=== PATIENT | male | born 1945 | race Caucasian/White ===

== ENCOUNTER 2018-11-21 12:51 | Day surgery (SDC) | payer MEDICARE, BC ==
[2018-11-21] MEDS ORDERED: Erythromycin Base 0.5% Ophth Oint 1 GM Tube EYEBOTH SCH (13:15)
[2018-11-21] MEDS ORDERED: Tetracaine HCl/PF 0.5% 4 ML Bottle EYEBOTH SCH (13:15)
[2018-11-21] MEDS ORDERED: Lidocaine 1%/Sod Bicarbonate in NS 8.4% 1 ML Syringe IDERM PRN (13:39)
[2018-11-21] MEDS ORDERED: Sodium Chloride 0.9% 10 ML Syringe FLUSH PRN (13:39)
[2018-11-21] MEDS ORDERED: Lactated Ringers 1,000 ML IV SCH (13:45)
--- NOTE | 2018-11-21 14:12 | PCM.PREANE ---
Preanesthetic Assessment - Anesthesia/Transfusion/Family Hx Anesthesia History: Prior Anesthesia Without Reaction Family History of Anesthesia Reaction: No Transfusion History: No Prior Transfusion(s) Intubation History: Unknown - Review of Systems General: No Symptoms Pulmonary: Other (Chronic Sinus Drainage, makes him clear is throat from time to time. SEVERINO wears CPAP. ) Cardiovascular: No Symptoms Gastrointestinal: Other (GERD/Hiatal hernia. No symptoms when he takes his prilosec, took in this morning. ) Neurological: No Symptoms Other: Reports: None - Physical Assessment NPO Status Date: 11/20/18 NPO Status Time: 18:00 O2 Sat by Pulse Oximetry: 96 Respiratory Rate: 18 Vital Signs: Last Vital Signs Temp 36.8 C 11/21/18 13:20 Pulse 65 11/21/18 13:20 Resp 18 11/21/18 13:20 BP 150/91 H 11/21/18 13:20 Pulse Ox 96 11/21/18 13:20 Height: 1.8 m Weight: 99.79 kg ASA Class: 2 Mental Status: Alert & Oriented x3 Airway Class: Mallampati = 2 Dentition: Reports: Normal Dentition Thyro-Mental Finger Breadths: 3 Mouth Opening Finger Breadths: 3 ROM/Head Extension: Full Lungs: Clear to Auscultation, Normal Respiratory Effort Cardiovascular: Regular Rate, Regular Rhythm - Allergies Allergies/Adverse Reactions: Allergies Allergy/AdvReac Type Severity Reaction Status Date / Time No Known Allergies Allergy Verified 11/21/18 13:49 - Acknowledgements Anesthesia Type Planned: MAC Pt an Appropriate Candidate for the Planned Anesthesia: Yes Alternatives and Risks of Anesthesia Discussed w Pt/Guardian: Yes Pt/Guardian Understands and Agrees with Anesthesia Plan: Yes Additional Comments: Shoulder Reduction in ER in July, aspiration noted, patient states he did not develop pneumonia. He was not NPO for this procedure. He understands that aspiration in a risk associated with anesthesia. Education provided regarding NPO status. He is NPO today. He verbalized his understanding and wishes to proceed. PreAnesthesia Questionnaire HEENT History: Reports: Cataract, Hard of Hearing, Impaired Vision Other HEENT History: Wears glasses, bilateral hearing aids Respiratory History: Reports: Sleep Apnea, Other (See Below) Other Respiratory History: coughs up mucuous frequently Gastrointestinal History: Reports: GERD, Hiatal Hernia Genitourinary History: Reports: None Musculoskeletal History: Reports: Arthritis Neurological History: Reports: Vertigo Psychiatric History: Reports: Depression - Infectious Disease History Infectious Disease History: Reports: Chicken Pox, Measles, Mumps - Past Surgical History HEENT Surgical History: Reports: Oral Surgery Respiratory Surgical History: Reports: None GI Surgical History: Reports: Colonoscopy Male Surgical History: Reports: None Neurological Surgical History: Reports: None Musculoskeletal Surgical History: Reports: None Dermatological Surgical History: Reports: Other (See Below) - HOME MEDS Home Medications: Home Meds Omeprazole Magnesium [Prilosec Otc] 40 mg PO DAILY 06/01/16 [History] Donepezil [Aricept] 5 mg PO BEDTIME 06/02/16 [History] Aspirin [Adult Aspirin] 81 mg PO DAILY 07/16/18 [History] Fish Oil/[place]-3 Fatty Acids [Fish Oil 1,000 MG] 1,000 mg PO DAILY 07/16/18 [ History] Fluticasone Furoate [Arnuity Ellipta] 50 mcg INH DAILY PRN 07/16/18 [History] Hydrocodone/Acetaminophen [[place] 5-325 Tablet] 1 - 2 tab PO Q6H PRN #20 tablet 07/16/18 [Rx] Methylcellulose [Fiber Therapy] 2 tab PO DAILY 07/16/18 [History] Naproxen 250 mg PO DAILY 07/16/18 [History] Ondansetron [Zofran ODT] 1 tab PO Q8H PRN #10 tab.dis 07/16/18 [Rx] - CURRENT (IN HOUSE) MEDS Current Meds: Current Medications Erythromycin (Erythromycin 0.5% Ophth Oint) 1 gm EYEBOTH ASDIRECTED VINICIUS Stop: 11/21/18 18:00 Lactated Ringer's (Ringers, Lactated) 1,000 mls @ 125 mls/hr IV ASDIRECTED VINICIUS Stop: 11/21/18 23:00 Last Admin: 11/21/18 13:35 Dose: 125 mls/hr Lidocaine/Sodium Bicarbonate (Buffered Lidocaine 1% In Ns 8.4%) 0.25 ml IDERM ONETIME PRN PRN Reason: Prior to IV Start Stop: 11/21/18 18:00 Last Admin: 11/21/18 13:35 Dose: 0.25 ml Sodium Chloride (Saline Flush) 10 ml FLUSH ASDIRECTED PRN PRN Reason: Keep Vein Open Stop: 11/21/18 18:00 Tetracaine HCl (Tetracaine 0.5% Steri-Unit Myah) 0 ml EYEBOTH ASDIRECTED VINICIUS Stop: 11/21/18 18:00
[2018-11-21] MEDS ORDERED: Propofol 200 MG/20 ML SDV ONE ×2 (14:35→15:34)
[2018-11-21] MEDS ORDERED: Lidocaine 1% 4 ML ONE (14:36)
[2018-11-21] MEDS ORDERED: Lidocaine 1% with EPINEPHrine 1:100,000 20 ML MDV ONE ×2 (14:49→15:35)
--- NOTE | 2018-11-21 16:26 | PCM48HPAN ---
Post Anesthesia Note - EVALUATION WITHIN 48HRS OF ANESTHETIC Vital Signs in Normal Range: Yes Patient Participated in Evaluation: Yes Respiratory Function Stable: Yes Airway Patent: Yes Cardiovascular Function Stable: Yes Hydration Status Stable: Yes Pain Control Satisfactory: Yes Nausea and Vomiting Control Satisfactory: Yes Mental Status Recovered: Yes
[2018-11-21 17:13] VITALS: BP 123/77
== END 2018-11-21 17:02 | disposition home or self-care (01) ==
LOC: JD.SDS 12:51
PROVIDERS: ATTEND Ophthalmology
DX: H02.834 Dermatochalasis of left upper eyelid (principal); H02.831 Dermatochalasis of right upper eyelid; H02.403 Unspecified ptosis of bilateral eyelids; G47.33 Obstructive sleep apnea (adult) (pediatric); Z99.89 Dependence on other enabling machines and devices; K21.9 Gastro-esophageal reflux disease without esophagitis; M19.90 Unspecified osteoarthritis, unspecified site; Z79.82 Long term (current) use of aspirin; Z79.899 Other long term (current) drug therapy
CPT/HCPCS: 15823; A9270; J2001; J2704; J7120

== ENCOUNTER 2020-05-27 07:54 | Emergency (ER) | payer MEDICARE, BC ==
--- NOTE | 2020-05-27 08:10 | EDM.PDOC ---
ED HPI GENERAL MEDICAL PROBLEM - General Chief Complaint: Respiratory Problem Stated Complaint: SOB,BODY ACHES, VOMITING,NAUSEA X 6 DAYS Time Seen by Provider: 05/27/20 08:10 - History of Present Illness INITIAL COMMENTS - FREE TEXT/NARRATIVE: 74-year-old male presents the emergency room with nausea vomiting and a cough. He also thinks he has had a fever. Patient has had a cough for 2 to 3 weeks he believes. He has had nausea and vomiting for 4 or 5 days. He is able to keep soups and liquids down but if he tries to eat something heavier he has problems with this. He has been voiding on a regular basis. The patient has a productive cough he thinks this is been going on for several weeks. He brings up a small amount of phlegm on occasion. He believes he has had fevers but is not sure how high. - Related Data Allergies Allergy/AdvReac Type Severity Reaction Status Date / Time No Known Allergies Allergy Verified 05/27/20 08:11 Home Meds: Home Meds Omeprazole Magnesium [Prilosec Otc] 40 mg PO DAILY 06/01/16 [History] Donepezil HCl 10 mg PO DAILY 05/27/20 [History] Prazosin [Minpress] 1 mg PO BEDTIME 05/27/20 [History] Tamsulosin HCl 0.4 mg PO DAILY 05/27/20 [History] ondansetron HCL [Ondansetron HCl] 4 mg PO Q6H PRN #12 tablet 05/27/20 [Rx] Past Medical History HEENT History: Reports: Cataract, Hard of Hearing, Impaired Vision Other HEENT History: Wears glasses, bilateral hearing aids Respiratory History: Reports: Sleep Apnea, Other (See Below) Other Respiratory History: coughs up mucuous frequently Gastrointestinal History: Reports: GERD, Hiatal Hernia Genitourinary History: Reports: None Musculoskeletal History: Reports: Arthritis Neurological History: Reports: Vertigo Psychiatric History: Reports: Depression - Infectious Disease History Infectious Disease History: Reports: Chicken Pox, Measles, Mumps - Past Surgical History HEENT Surgical History: Reports: Oral Surgery Respiratory Surgical History: Reports: None GI Surgical History: Reports: Colonoscopy Male Surgical History: Reports: None Neurological Surgical History: Reports: None Musculoskeletal Surgical History: Reports: None Dermatological Surgical History: Reports: Other (See Below) Social & Family History - Family History Family Medical History: Noncontributory Neurological: Reports: CVA - Caffeine Use Caffeine Use: Reports: Coffee - Living Situation & Occupation Living situation: Reports: , Alone Occupation: Employed (Part-time, [employer]) ED ROS GENERAL - Review of Systems Review Of Systems: See Below Constitutional: Reports: Fever. Denies: Chills HEENT: Reports: No Symptoms Respiratory: Reports: Cough, Sputum. Denies: Shortness of Breath, Wheezing, Hemoptysis Cardiovascular: Reports: No Symptoms Endocrine: Reports: No Symptoms GI/Abdominal: Reports: No Symptoms : Reports: No Symptoms Musculoskeletal: Reports: Other (Generalized achiness) Skin: Reports: No Symptoms Neurological: Reports: No Symptoms Psychiatric: Reports: No Symptoms Immunologic: Reports: No Symptoms ED EXAM, GENERAL - Physical Exam Exam: See Below Exam Limited By: Intoxication General Appearance: Alert, No Apparent Distress Eye Exam: Bilateral Eye: Normal Inspection Ears: Normal External Exam, Normal Canal, Hearing Grossly Normal, Normal TMs, Other (Hearing aids had to be removed for exam) Nose: Normal Inspection, Normal Mucosa, No Blood Throat/Mouth: Normal Inspection, Normal Lips, Normal Teeth, Normal Gums, Normal Oropharynx, Normal Voice, No Airway Compromise Head: Atraumatic, Normocephalic Neck: Normal Inspection, Supple, Non-Tender, Full Range of Motion Respiratory/Chest: No Respiratory Distress, Lungs Clear, Normal Breath Sounds Cardiovascular: Regular Rate, Rhythm, No Edema, No Murmur GI/Abdominal: Normal Bowel Sounds, Soft, Non-Tender, No Distention, Other (Obese) Back Exam: Normal Inspection. No: CVA Tenderness (L), CVA Tenderness (R) Extremities: Normal Inspection, No Pedal Edema Neurological: Alert, Oriented, Normal Cognition, Other (Apparently has some baseline dementia) Skin Exam: Warm, Dry, Intact Course - Vital Signs Last Recorded V/S: Last Vital Signs Temp 36.5 C 05/27/20 08:06 Pulse 66 05/27/20 08:06 Resp 23 H 05/27/20 08:06 BP 146/82 H 05/27/20 08:06 Pulse Ox 94 L 05/27/20 08:06 - Orders/Labs/Meds Orders: Active Orders 24 hr Category Date Time Status Sodium Chloride 0.9% [Normal Saline] 100 ml Med 05/27/20 10:45 Active IV ASDIRECTED Sodium Chloride 0.9% [Saline Flush] Med 05/27/20 10:41 Active 10 ml FLUSH ONETIME PRN Medication Orders Sodium Chloride (Normal Saline) 100 mls @ 75 mls/hr IV ASDIRECTED VINICIUS Last Admin: 05/27/20 11:16 Dose: 75 mls/hr Documented by: LAVINIA Sodium Chloride (Saline Flush) 10 ml FLUSH ONETIME PRN PRN Reason: IV FLUSH Last Admin: 05/27/20 11:16 Dose: 10 ml Documented by: Admin: 05/27/20 10:55 Dose: 10 ml Documented by: BISHOP Labs: Laboratory Tests 05/27/20 05/27/20 05/27/20 Range/Units 08:56 09:12 09:12 WBC 6.29 (4.23-9.07) K/mm3 RBC 4.67 (4.63-6.08) M/mm3 Hgb 13.9 (13.7-17.5) gm/dl Hct 43.0 (40.1-51.0) % MCV 92.1 (79.0-92.2) fl MCH 29.8 (25.7-32.2) pg MCHC 32.3 (32.2-35.5) g/dl RDW Std Deviation 45.7 H (35.1-43.9) fL Plt Count 149 L (163-337) K/mm3 MPV 10.2 (9.4-12.3) fl Neutrophils % (Manual) 80 H (40-60) % Band Neutrophils % 0 (0-10) % Lymphocytes % (Manual) 14 L (20-40) % Atypical Lymphs % 0 % Monocytes % (Manual) 6 (2-10) % Eosinophils % (Manual) 0 L (0.8-7.0) % Basophils % (Manual) 0 L (0.2-1.2) Platelet Estimate Adequate Plt Morphology Comment Normal RBC Morph Comment Normal D-Dimer, Quantitative (0.19-0.50) mg/L Sodium 141 (136-145) mEq/L Potassium 3.7 (3.5-5.1) mEq/L Chloride 106 (98-107) mEq/L Carbon Dioxide 27 (21-32) mEq/L Anion Gap 11.7 (5-15) BUN 27 H (7-18) mg/dL Creatinine 1.2 (0.7-1.3) mg/dL Est Cr Clr Drug Dosing 57.48 mL/min Estimated GFR (MDRD) 59 (>60) mL/min BUN/Creatinine Ratio 22.5 H (14-18) Glucose 103 (83-115) mg/dL Calcium 8.2 L (8.5-10.1) mg/dL Ferritin (26-388) ng/ml Total Bilirubin 0.9 (0.2-1.0) mg/dL AST 26 (15-37) U/L ALT 29 (16-63) U/L Alkaline Phosphatase 30 L (46-116) U/L Lactate Dehydrogenase 241 H (85-227) U/L Creatine Kinase 92 (39-308) U/L C-Reactive Protein 8.0 H* (<1.0) mg/dL Total Protein 6.7 (6.4-8.2) g/dl Albumin 3.2 L (3.4-5.0) g/dl Globulin 3.5 gm/dL Albumin/Globulin Ratio 0.9 L (1-2) SARS-CoV-2 RNA (BR[place]NEY) Positive H (NEGATIVE) 05/27/20 05/27/20 Range/Units 09:12 09:12 WBC (4.23-9.07) K/mm3 RBC (4.63-6.08) M/mm3 Hgb (13.7-17.5) gm/dl Hct (40.1-51.0) % MCV (79.0-92.2) fl MCH (25.7-32.2) pg MCHC (32.2-35.5) g/dl RDW Std Deviation (35.1-43.9) fL Plt Count (163-337) K/mm3 MPV (9.4-12.3) fl Neutrophils % (Manual) (40-60) % Band Neutrophils % (0-10) % Lymphocytes % (Manual) (20-40) % Atypical Lymphs % % Monocytes % (Manual) (2-10) % Eosinophils % (Manual) (0.8-7.0) % Basophils % (Manual) (0.2-1.2) Platelet Estimate Plt Morphology Comment RBC Morph Comment D-Dimer, Quantitative 1.12 H (0.19-0.50) mg/L Sodium (136-145) mEq/L Potassium (3.5-5.1) mEq/L Chloride (98-107) mEq/L Carbon Dioxide (21-32) mEq/L Anion Gap (5-15) BUN (7-18) mg/dL Creatinine (0.7-1.3) mg/dL Est Cr Clr Drug Dosing mL/min Estimated GFR (MDRD) (>60) mL/min BUN/Creatinine Ratio (14-18) Glucose (83-115) mg/dL Calcium (8.5-10.1) mg/dL Ferritin 811 H (26-388) ng/ml Total Bilirubin (0.2-1.0) mg/dL AST (15-37) U/L ALT (16-63) U/L Alkaline Phosphatase (46-116) U/L Lactate Dehydrogenase (85-227) U/L Creatine Kinase (39-308) U/L C-Reactive Protein (<1.0) mg/dL Total Protein (6.4-8.2) g/dl Albumin (3.4-5.0) g/dl Globulin gm/dL Albumin/Globulin Ratio (1-2) SARS-CoV-2 RNA (BR[place]NEY) (NEGATIVE) Meds: Medications Generic Name Dose Route Start Last Admin Trade Name Heather PRN Reason Stop Dose Admin Sodium Chloride 100 mls @ 75 mls/hr 05/27/20 10:45 05/27/20 11:16 Normal Saline IV 75 mls/hr ASDIRECTED VINICIUS Administration Sodium Chloride 10 ml 05/27/20 10:41 05/27/20 11:16 Saline Flush FLUSH 10 ml ONETIME PRN Administration IV FLUSH Discontinued Medications Generic Name Dose Route Start Last Admin Trade Name Freq PRN Reason Stop Dose Admin Iopamidol 100 ml 05/27/20 10:41 05/27/20 11:16 Isovue-370 (76%) IVPUSH 05/27/20 10:42 100 ml ONETIME ONE Administration Ondansetron HCl 4 mg 05/27/20 08:48 05/27/20 09:31 Zofran Odt PO 05/27/20 08:49 4 mg ONETIME ONE Administration - Re-Assessments/Exams Free Text/Narrative Re-Assessment/Exam: 05/27/20 10:38 Chest x-ray shows a developing density in the right upper lobe suspicious for pneumonia his d-dimer is elevated his d-dimer is elevated we will check a CTA. 05/27/20 14:24 We thought initially this patient might do well as an outpatient as he was having mostly GI symptoms however his O2 saturation dropped some while here in the emergency department. Discussed the situation with the daughter and they would still like for him to be treated as an outpatient we have arranged home O2 therapy and will start him on some Zofran he will not use that in the donepezil while taking the Zofran. Departure - Departure Time of Disposition: 14:17 Disposition: Home, Self-Care 01 Clinical Impression: COVID-19 determined by clinical diagnostic criteria, Nausea and vomiting - Discharge Information Referrals: Matthew Peters MD [Primary Care Provider] - Forms: ED Department Discharge Additional Instructions: Return to the emergency room with any questions problems or worsening symptoms. Have a high index of suspicion for any worsening symptoms as this is good justification to be rechecked. Stop the donepezil while using the Zofran restart after a couple days have elapsed while not needing the Zofran. Use the oxygen to keep the O2 saturation between 90 and 94%. Sepsis Event Note (ED) - Focused Exam Vital Signs: Vital Signs Temp Pulse Resp BP Pulse Ox 05/27/20 08:06 36.5 C 66 23 H 146/82 H 94 L - My Orders Last 24 Hours: My Active Orders 05/27/20 10:41 Sodium Chloride 0.9% [Saline Flush] 10 ml FLUSH ONETIME PRN 05/27/20 10:45 Sodium Chloride 0.9% [Normal Saline] 100 ml IV ASDIRECTED - Assessment/Plan Last 24 Hours: My Active Orders 05/27/20 10:41 Sodium Chloride 0.9% [Saline Flush] 10 ml FLUSH ONETIME PRN 05/27/20 10:45 Sodium Chloride 0.9% [Normal Saline] 100 ml IV ASDIRECTED
[2020-05-27] MEDS ORDERED: Ondansetron 4 MG Tab.DIS PO ONE (08:48)
--- NOTE | 2020-05-27 10:19 | CR ---
Chest: Portable view of the chest was obtained. Comparison: Prior chest x-ray of 07/17/18. Heart size is slightly enlarged. Tortuous thoracic aorta is seen. Minimal discoid atelectasis within left midlung. Slight focal parenchymal density within the right upper lung is seen adjacent to the minor fissure. Lungs otherwise are clear. Bony structures are grossly intact. Impression: 1. Focal density within the upper right lung presumably due to small area of pneumonia. 2. Slight discoid atelectasis within the left midlung. 3. Other findings which are felt to be stable. Diagnostic code #3 This report was dictated in MDT
[2020-05-27] MEDS ORDERED: Iopamidol 755 Mg/ML 100 ML Bottle IVPUSH ONE (10:41)
[2020-05-27] MEDS ORDERED: Sodium Chloride 0.9% 100 ML IV SCH (10:45)
[2020-05-27] MEDS: Sodium Chloride 0.9% 10 ML Syringe FLUSH PRN ×2 (10:55→11:16)
--- NOTE | 2020-05-27 11:34 | CT ---
CT chest Technique: Multiple axial sections were obtained from above the lung apices inferiorly through the lung bases. Intravenous contrast was utilized. Study performed as a pulmonary angiogram protocol. Findings: Pulmonary arteries are fairly well-opacified. No filling defects are seen to indicate pulmonary embolism. Aorta shows no aneurysm. Mediastinal lymph nodes are noted believed to be within normal limits. Patchy areas of increased density are seen within both sides of the chest. Finding compatible with mild Covid pneumonia. No pleural effusions are seen. Visualized upper abdominal structures show nothing acute. Cyst noted within the left kidney. Small hiatal hernia is present. Heart is slightly enlarged. Bone window settings were reviewed. Scattered degenerative change within the spine. Numerous compression deformities within the midthoracic spine are seen which are most likely old. No acute osseous finding is definitely appreciated. Impression: 1. No findings of pulmonary embolism. 2. Patchy increased density within the chest felt compatible with mild Covid pneumonia. 2. Other findings which are felt to be nonacute as described above. Diagnostic code #5 This report was dictated in MDT
[2020-05-27 14:44] VITALS: BP 136/82; PULSE 76
== END 2020-05-27 15:20 | disposition home or self-care (01) ==
LOC: JD.ED 07:54
DX: U07.1 COVID-19 (principal); R11.2 Nausea with vomiting, unspecified; K21.9 Gastro-esophageal reflux disease without esophagitis; Z79.899 Other long term (current) drug therapy
CPT/HCPCS: 36415; 71045; 71275; 80053; 82550; 82728; 83615; 85007; 85027; 85379; 86140; 96360; 99284; A9270; J7050; Q9967; U0002

== ENCOUNTER 2021-01-29 06:49 | Emergency (ER) | payer MEDICARE, BC ==
[2021-01-29 07:14] VITALS: BP 149/91; PULSE 61
--- NOTE | 2021-01-29 07:31 | EDM.PDOC ---
ED HPI GENERAL MEDICAL PROBLEM - General Chief Complaint: Genitourinary Problem Stated Complaint: UNABLE TO URINATE Time Seen by Provider: 01/29/21 07:09 Source of Information: Reports: Patient, Family History Limitations: Reports: No Limitations - History of Present Illness INITIAL COMMENTS - FREE TEXT/NARRATIVE: The patient presents with his daughter for the inability to urinate. He says for a few days he can only go a small amount. He is on flomax but it has never been this bad. It hurts when he drinks lots of water. He has no fever or chills. He has no pain with urination when he does go. He has no other concerns. Onset: Gradual Duration: Day(s): Location: Reports: Abdomen Quality: Reports: Ache Severity: Mild Improves with: Reports: None Worsens with: Reports: None Associated Symptoms: Reports: No Other Symptoms Lower Abdomen Pain Score (Numeric/FACES): 4 - Related Data Allergies Allergy/AdvReac Type Severity Reaction Status Date / Time No Known Allergies Allergy Verified 01/29/21 07:10 Home Meds: Home Meds Donepezil HCl 10 mg PO DAILY 01/29/21 [History] Fish Oil/[place]-3 Fatty Acids [Fish Oil 1,000 MG] 1 each PO QAM 01/29/21 [History] Methylcellulose [Fiber] 500 mg PO QAM 01/29/21 [History] Omeprazole Magnesium [Prilosec Otc] 20 mg PO DAILY 01/29/21 [History] Tamsulosin HCl [Flomax] 0.4 mg PO QAM 01/29/21 [History] traZODone HCl [Trazodone HCl] 50 mg PO DAILY 01/29/21 [History] Past Medical History HEENT History: Reports: Cataract, Hard of Hearing, Impaired Vision Other HEENT History: Wears glasses, bilateral hearing aids Respiratory History: Reports: Sleep Apnea, Other (See Below) Other Respiratory History: coughs up mucuous frequently Gastrointestinal History: Reports: GERD, Hiatal Hernia Genitourinary History: Reports: None Musculoskeletal History: Reports: Arthritis Neurological History: Reports: Vertigo Psychiatric History: Reports: Depression - Infectious Disease History Infectious Disease History: Reports: Chicken Pox, Measles, Mumps - Past Surgical History HEENT Surgical History: Reports: Oral Surgery Respiratory Surgical History: Reports: None GI Surgical History: Reports: Colonoscopy Male Surgical History: Reports: None Neurological Surgical History: Reports: None Musculoskeletal Surgical History: Reports: None Dermatological Surgical History: Reports: Other (See Below) Social & Family History - Family History Family Medical History: No Pertinent Family History Neurological: Reports: CVA - Caffeine Use Caffeine Use: Reports: Coffee - Living Situation & Occupation Living situation: Reports: , Alone Occupation: Employed (Part-time, [employer]) ED ROS GENERAL - Review of Systems Review Of Systems: See Below Constitutional: Reports: No Symptoms HEENT: Reports: No Symptoms Respiratory: Reports: No Symptoms Cardiovascular: Reports: No Symptoms Endocrine: Reports: No Symptoms GI/Abdominal: Reports: Abdominal Pain (at times) : Reports: Urinary Retention ED EXAM, GI/ABD - Physical Exam Exam: See Below Exam Limited By: No Limitations General Appearance: Alert, No Apparent Distress Ears: Normal External Exam Nose: Normal Inspection Head: Atraumatic, Normocephalic Neck: Normal Inspection Respiratory/Chest: No Respiratory Distress, Lungs Clear, Normal Breath Sounds Cardiovascular: Regular Rate, Rhythm, No Edema, No Murmur GI/Abdominal Exam: Soft, Non-Tender, No Organomegaly, No Mass Extremities: Normal Inspection Neurological: Alert, Oriented Course - Vital Signs Last Recorded V/S: Last Vital Signs Temp 96.9 F 01/29/21 07:10 Pulse 61 01/29/21 07:10 Resp 16 01/29/21 07:10 BP 149/91 H 01/29/21 07:10 Pulse Ox 94 L 01/29/21 07:10 - Orders/Labs/Meds Orders: Active Orders 24 hr Category Date Time Status Bladder Scan [RC] ASDIRECTED Care 01/29/21 07:33 Active Insert Huynh Catheter [Insert Urinary Catheter] [OM.PC] Care 01/29/21 07:30 Ordered Q24H Urinary Catheter Assessment [RC] ASDIRECTED Care 01/29/21 07:26 Active Labs: Laboratory Tests 01/29/21 01/29/21 01/29/21 Range/Units 07:30 07:55 07:55 WBC 6.49 (4.23-9.07) K/mm3 RBC 4.79 (4.63-6.08) M/mm3 Hgb 14.4 (13.7-17.5) gm/dl Hct 44.1 (40.1-51.0) % MCV 92.1 (79.0-92.2) fl MCH 30.1 (25.7-32.2) pg MCHC 32.7 (32.2-35.5) g/dl RDW Std Deviation 45.9 H (35.1-43.9) fL Plt Count 214 (163-337) K/mm3 MPV 9.5 (9.4-12.3) fl Neut % (Auto) 59.7 (34.0-67.9) % Lymph % (Auto) 27.9 (21.8-53.1) % [place] % (Auto) 8.5 (5.3-12.2) % Eos % (Auto) 3.5 (0.8-7.0) Baso % (Auto) 0.2 (0.1-1.2) % Neut # (Auto) 3.88 (1.78-5.38) K/mm3 Lymph # (Auto) 1.81 (1.32-3.57) K/mm3 [place] # (Auto) 0.55 (0.30-0.82) K/mm3 Eos # (Auto) 0.23 (0.04-0.54) K/mm3 Baso # (Auto) 0.01 (0.01-0.08) K/mm3 Sodium 141 (136-145) mEq/L Potassium 4.0 (3.5-5.1) mEq/L Chloride 105 (98-107) mEq/L Carbon Dioxide 25 (21-32) mEq/L Anion Gap 15.0 (5-15) BUN 20 H (7-18) mg/dL Creatinine 1.2 (0.7-1.3) mg/dL Est Cr Clr Drug Dosing 56.58 mL/min Estimated GFR (MDRD) 59 (>60) mL/min BUN/Creatinine Ratio 16.7 (14-18) Glucose 107 H (70-99) mg/dL Calcium 8.7 (8.5-10.1) mg/dL Total Bilirubin 1.0 (0.2-1.0) mg/dL AST 17 (15-37) U/L ALT 25 (16-63) U/L Alkaline Phosphatase 40 L (46-116) U/L Total Protein 6.9 (6.4-8.2) g/dl Albumin 3.6 (3.4-5.0) g/dl Globulin 3.3 gm/dL Albumin/Globulin Ratio 1.1 (1-2) Urine Color Yellow (Yellow) Urine Appearance Clear (Clear) Urine pH 7.0 (5.0-8.0) Ur Specific [place] 1.025 (1.005-1.030) Urine Protein Negative (Negative) Urine Glucose (UA) Negative (Negative) Urine Ketones Negative (Negative) Urine Occult Blood Negative (Negative) Urine Nitrite Negative (Negative) Urine Bilirubin Negative (Negative) Urine Urobilinogen 0.2 (0.2-1.0) Ur Leukocyte Esterase Negative (Negative) - Re-Assessments/Exams Free Text/Narrative Re-Assessment/Exam: 01/29/21 07:31 Bladder scan shows he has 640mls. I have ordered a huynh cath, UA and labs. 01/29/21 08:43 His CBC and CMP look good. His UA shows no UTI. I will have to leave the catheter in for a few days. I will have him follow up with Dr Delong. Departure - Departure Time of Disposition: 08:45 Disposition: Home, Self-Care 01 Condition: Good Clinical Impression: Urinary retention - Discharge Information *PRESCRIPTION DRUG MONITORING PROGRAM REVIEWED*: Not Applicable *COPY OF PRESCRIPTION DRUG MONITORING REPORT IN PATIENT LANDY: Not Applicable Referrals: Matthew Peters MD [Primary Care Provider] - 1 Week Forms: ED Department Discharge Additional Instructions: Keep taking your medication. The catheter needs to stay in for a few days. Follow up with Dr Delong within a week. Please return if you are worse. Sepsis Event Note (ED) - Evaluation Sepsis Screening Result: No Definite Risk - Focused Exam Vital Signs: Vital Signs Temp Pulse Resp BP Pulse Ox 01/29/21 07:10 96.9 F 61 16 149/91 H 94 L - My Orders Last 24 Hours: My Active Orders 01/29/21 07:26 Urinary Catheter Assessment [RC] ASDIRECTED 01/29/21 07:30 Insert Huynh Catheter [Insert Urinary Catheter] [OM.PC] Q24H 01/29/21 07:33 Bladder Scan [RC] ASDIRECTED - Assessment/Plan Last 24 Hours: My Active Orders 01/29/21 07:26 Urinary Catheter Assessment [RC] ASDIRECTED 01/29/21 07:30 Insert Huynh Catheter [Insert Urinary Catheter] [OM.PC] Q24H 01/29/21 07:33 Bladder Scan [RC] ASDIRECTED
== END 2021-01-29 09:07 | disposition home or self-care (01) ==
LOC: JD.ED 06:49
DX: R33.9 Retention of urine, unspecified (principal); K21.9 Gastro-esophageal reflux disease without esophagitis; Z79.899 Other long term (current) drug therapy
CPT/HCPCS: 36415; 51702; 80053; 81003; 85025; 99282; 99283-25

== ENCOUNTER 2021-07-25 04:51 | Emergency (ER) | payer MEDICARE, BC ==
[2021-07-25 05:01] VITALS: BP 180/105; PULSE 61
--- NOTE | 2021-07-25 05:36 | EDM.PDOC ---
ED HPI GENERAL MEDICAL PROBLEM - General Chief Complaint: Chest Pain Stated Complaint: CHEST PAIN Time Seen by Provider: 07/25/21 05:36 Source of Information: Reports: Patient History Limitations: Reports: No Limitations - History of Present Illness INITIAL COMMENTS - FREE TEXT/NARRATIVE: Patient is a 75-year-old male with no significant past medical history presenting with a chief complaint of chest pain. Patient reports chest pain has been ongoing for the past few months. He states the pain is in his left lower side as well as in the left side of his chest. Patient reports symptoms seem to worsen with coughing or sneezing. He reports that the pain feels like a "surge" he does feel some mild shortness of breath. He also has noted some decrease in exercise tolerance over the past few months as well. He seems to be winded more easily [place] report any chest pain with his exertion. Patient otherwise denies fevers, chills, cough, or extremity swelling, calf pain, history of DVT/PE. Patient states his symptoms got worse last night and his daughter is also visiting from out of town. He therefore decided to come into the emergency room. Treatments COOK TORTILLA: Reports: Aspirin Left Chest Pain Score (Numeric/FACES): 3 - Related Data Allergies Allergy/AdvReac Type Severity Reaction Status Date / Time No Known Allergies Allergy Verified 07/25/21 05:01 Home Meds: Home Meds Donepezil HCl 10 mg PO DAILY 01/29/21 [History] Fish Oil/[place]-3 Fatty Acids [Fish Oil 1,000 MG] 1 each PO TID 01/29/21 [History] Methylcellulose [Fiber] 500 mg PO QAM 01/29/21 [History] Omeprazole Magnesium [Prilosec Otc] 40 mg PO DAILY 01/29/21 [History] Tamsulosin HCl [Flomax] 0.4 mg PO QAM 01/29/21 [History] traZODone HCl [Trazodone HCl] 100 mg PO DAILY 01/29/21 [History] Finasteride [Proscar] 5 mg PO DAILY 07/25/21 [History] Past Medical History HEENT History: Reports: Cataract, Hard of Hearing, Impaired Vision Other HEENT History: Wears glasses, bilateral hearing aids Respiratory History: Reports: Sleep Apnea Other Respiratory History: coughs up mucuous frequently Gastrointestinal History: Reports: GERD, Hiatal Hernia Genitourinary History: Reports: BPH Musculoskeletal History: Reports: Arthritis Neurological History: Reports: Vertigo Psychiatric History: Reports: Depression - Infectious Disease History Infectious Disease History: Reports: Chicken Pox, Measles, Mumps, Novel Coronavirus - Past Surgical History HEENT Surgical History: Reports: Oral Surgery Respiratory Surgical History: Reports: None GI Surgical History: Reports: Colonoscopy Dermatological Surgical History: Reports: Other (See Below) Social & Family History - Family History Family Medical History: No Pertinent Family History Neurological: Reports: CVA - Tobacco Use Tobacco Use Status *Q: Never Tobacco User - Caffeine Use Caffeine Use: Reports: Coffee - Recreational Drug Use Recreational Drug Use: No - Living Situation & Occupation Living situation: Reports: , Alone Occupation: Employed (Part-time, [employer]) ED ROS GENERAL - Review of Systems Review Of Systems: See Below Free Text/Narrative/Comment: In addition to that documented in the HPI above, the additional ROS was obtained: Constitutional: Denies fevers or chills Eyes: Denies vision changes ENMT: Denies sore throat CV: Per HPI Resp: Per HPI GI: Denies vomiting or diarrhea : Denies painful urination MSK: Denies recent trauma Skin: Denies new rashes Neuro: Denies new numbness or tingling or weakness Endocrine: Denies unexpected weight loss Heme: Denies bleeding disorders ED EXAM, GENERAL - Physical Exam Exam: See Below Free Text/Narrative:: I have reviewed the triage vital signs Const: Well nourished, well developed, appears stated age Eyes: Pupils Equal and reactive to light bilaterally, no conjunctival injection HENT: No signs of trauma or swelling, Neck supple without meningismus CV: Regular Rate Rhythm, Warm, well-perfused extremities RESP: Unlabored respiratory effort GI: soft, non-tender, non-distended, no masses MSK: No gross deformities appreciated Skin: Warm, dry. No rashes Neuro: Alert, band tacker II-XII grossly intact. Sensation and motor function of extremities grossly intact. Psych: Appropriate mood and affect. #1 Interpretation EKG Date: 07/25/21 Time: 04:58 Rhythm: NSR Rate (Beats/Min): 60 [place]: LAD-Left [place] Deviation P-Wave: Present QRS: Normal ST-T: Normal QT: Normal Comparison: NA - No Prior EKG EKG Interpretation Comments: normal ekg Course - Vital Signs Last Recorded V/S: Last Vital Signs Temp 35.6 C L 07/25/21 04:58 Pulse 61 07/25/21 04:58 Resp 14 07/25/21 04:58 BP 180/105 H 07/25/21 04:58 Pulse Ox 97 07/25/21 04:58 - Orders/Labs/Meds Orders: Active Orders 24 hr Category Date Time Status Chest 1V Frontal [CR] Stat Exams 07/25/21 05:06 Taken Labs: Laboratory Tests 07/25/21 07/25/21 07/25/21 Range/Units 05:35 05:35 05:35 WBC 7.32 (4.23-9.07) K/mm3 RBC 4.85 (4.63-6.08) M/mm3 Hgb 14.7 (13.7-17.5) gm/dl Hct 45.3 (40.1-51.0) % MCV 93.4 H (79.0-92.2) fl MCH 30.3 (25.7-32.2) pg MCHC 32.5 (32.2-35.5) g/dl RDW Std Deviation 44.0 H (35.1-43.9) fL Plt Count 242 (163-337) K/mm3 MPV 9.7 (9.4-12.3) fl Neut % (Auto) 57.8 (34.0-67.9) % Lymph % (Auto) 27.0 (21.8-53.1) % [place] % (Auto) 10.2 (5.3-12.2) % Eos % (Auto) 4.4 (0.8-7.0) Baso % (Auto) 0.3 (0.1-1.2) % Neut # (Auto) 4.23 (1.78-5.38) K/mm3 Lymph # (Auto) 1.98 (1.32-3.57) K/mm3 [place] # (Auto) 0.75 (0.30-0.82) K/mm3 Eos # (Auto) 0.32 (0.04-0.54) K/mm3 Baso # (Auto) 0.02 (0.01-0.08) K/mm3 PT 10.3 (9.7-12.0) SECONDS INR 0.93 Sodium 142 (136-145) mEq/L Potassium 4.0 (3.5-5.1) mEq/L Chloride 106 (98-107) mEq/L Carbon Dioxide 26 (21-32) mEq/L Anion Gap 14.0 (5-15) BUN 16 (7-18) mg/dL Creatinine 1.1 (0.7-1.3) mg/dL Est Cr Clr Drug Dosing 61.73 mL/min Estimated GFR (MDRD) > 60 (>60) mL/min BUN/Creatinine Ratio 14.5 (14-18) Glucose 100 H (70-99) mg/dL Calcium 8.7 (8.5-10.1) mg/dL Total Bilirubin 1.0 (0.2-1.0) mg/dL AST 17 (15-37) U/L ALT 21 (16-63) U/L Alkaline Phosphatase 39 L (46-116) U/L Troponin I < 0.017 (0.00-0.056) ng/mL Total Protein 7.1 (6.4-8.2) g/dl Albumin 3.9 (3.4-5.0) g/dl Globulin 3.2 gm/dL Albumin/Globulin Ratio 1.2 (1-2) Departure - Departure Time of Disposition: 06:35 Disposition: Home, Self-Care 01 Clinical Impression: Atypical chest pain Instructions: Nonspecific Chest Pain, Adult Referrals: Matthew Peters MD [Primary Care Provider] - Forms: ED Department Discharge Additional Instructions: Please follow-up with primary care today. Return to the emergency room should your pain worsen or if you have any other emergent concerns. Sepsis Event Note (ED) - Evaluation Sepsis Screening Result: No Definite Risk - Focused Exam Vital Signs: Vital Signs Temp Pulse Resp BP Pulse Ox 07/25/21 04:58 35.6 C L 61 14 180/105 H 97 - My Orders Last 24 Hours: My Active Orders 07/25/21 05:06 Chest 1V Frontal [CR] Stat - Assessment/Plan Last 24 Hours: My Active Orders 07/25/21 05:06 Chest 1V Frontal [CR] Stat Assessment:: Patient 75-year-old male presenting with chest pain. Patient had unremarkable ER course. EKG demonstrates no evidence of ischemic changes. Patient somewhat hypertensive during emergency department stay. He does not appear to be uncomfortable. Resting on the cot without issues during ER stay. Differential diagnosis considered for this patient include PE, ACS, aortic dissection, pneumonia. Based on his evaluation, no evidence of ACS or PE. No evidence of aortic dissection. At this point, patient has a heart score of 3 and is appropriate for outpatient work-up. Discussed with daughter and patient. They agree with plan of care. Return precautions discussed as usual.
--- NOTE | 2021-07-25 07:17 | CR ---
Chest: Portable view of the chest was obtained. Comparison: Prior chest x-ray of 05/27/20 Density seen previously within the right upper chest has decreased on current exam. No definite acute parenchymal change is seen. Heart is slightly enlarged. Tortuous thoracic aorta is seen. Degenerative change is noted within the shoulders. Osteopenia is present. Several old healed left-sided rib fractures are noted. Impression: 1. Prior study showed increased density within the right upper chest which has improved on current exam. 2. Stable cardiomegaly is noted. 3. Nothing acute is definitely appreciated. Diagnostic code #2
== END 2021-07-25 06:45 | disposition home or self-care (01) ==
LOC: JD.ED 04:51
DX: R07.89 Other chest pain (principal); K21.9 Gastro-esophageal reflux disease without esophagitis; N40.0 Benign prostatic hyperplasia without lower urinary tract symptoms; Z79.899 Other long term (current) drug therapy
CPT/HCPCS: 36415; 71045; 71045-26; 80053; 84484; 85025; 85610; 93005; 93010; 99284; 99285-25

== ENCOUNTER 2021-09-07 06:26 | Day surgery (SDC) | payer MEDICARE, BC ==
[~2021-09-07 06:26] MED LIST: Lactated Ringers 1,000 ML IV SCH; Lidocaine 1%/Sod Bicarbonate in NS 8.4% 1 ML Syringe IDERM PRN; Sodium Chloride 0.9% 10 ML Syringe FLUSH SCH
[2021-09-07] MEDS ORDERED: Lidocaine 1% with EPINEPHrine 1:100,000 20 ML MDV ONE ×2 (06:49→08:23)
[2021-09-07] MEDS ORDERED: Sodium Chloride 0.9% 50 ML SDV ONE (06:49)
--- NOTE | 2021-09-07 06:52 | PCM.PREANE ---
Preanesthetic Assessment - Procedure Proposed Procedure: Ioum-f-lvlgdolo placement - Anesthesia/Transfusion/Family Hx Anesthesia History: Prior Anesthesia Without Reaction Family History of Anesthesia Reaction: No Transfusion History: No Prior Transfusion(s) Intubation History: Unknown - Review of Systems General: No Symptoms Pulmonary: Shortness of Breath (from cancer) Cardiovascular: No Symptoms Gastrointestinal: No Symptoms Neurological: No Symptoms Other: Reports: Easy Bleeding, Easy Bruising - Physical Assessment NPO Status Date: 09/06/21 NPO Status Time: 21:00 Vital Signs: 157/86 HR 69 95 RA 18 98.2 Height: 1.8 m Weight: 104.326 kg ASA Class: 2 Mental Status: Alert & Oriented x3 Airway Class: Mallampati = 2 Dentition: Reports: Caries Thyro-Mental Finger Breadths: 2 Mouth Opening Finger Breadths: 2 ROM/Head Extension: Full Lungs: Clear to Auscultation, Normal Respiratory Effort Cardiovascular: Regular Rate, Regular Rhythm, No Murmurs - Lab Values: Labs reviewed and okay to proceed - Allergies Allergies/Adverse Reactions: Allergies Allergy/AdvReac Type Severity Reaction Status Date / Time No Known Allergies Allergy Verified 07/25/21 05:01 - Acknowledgements Anesthesia Type Planned: MAC Pt an Appropriate Candidate for the Planned Anesthesia: Yes Alternatives and Risks of Anesthesia Discussed w Pt/Guardian: Yes Pt/Guardian Understands and Agrees with Anesthesia Plan: Yes PreAnesthesia Questionnaire HEENT History: Reports: Cataract, Hard of Hearing, Impaired Vision Other HEENT History: Wears glasses, bilateral hearing aids Cardiovascular History: Reports: None Respiratory History: Reports: Sleep Apnea Other Respiratory History: coughs up mucuous frequently Gastrointestinal History: Reports: GERD, Hiatal Hernia Genitourinary History: Reports: BPH Other Genitourinary History: protstatis PLACER MINER History: Reports: None Musculoskeletal History: Reports: Arthritis Other Musculoskeletal History: degnerative joint disease, hx fracture to humerus right arm, closed fracture of scapula Neurological History: Reports: Vertigo Psychiatric History: Reports: Depression Endocrine/Metabolic History: Reports: None Hematologic History: Reports: None Immunologic History: Reports: None Oncologic (Cancer) History: Reports: Lung Dermatologic History: Reports: Other (See Below) Other Dermatologic History: lichen planus, lesion removal, actinic keratosis, rash to upper abdomen, lower chest, and rash to ECHO patches from yesterday, no new rashes noted today - Infectious Disease History Infectious Disease History: Reports: Chicken Pox, Measles, Mumps, Novel Coronavirus - Past Surgical History HEENT Surgical History: Reports: Oral Surgery (wisdom teeth) GI Surgical History: Reports: Colonoscopy Male Surgical History: Reports: Other (See Below) (hydrocelectomy) Musculoskeletal Surgical History: Reports: Shoulder Surgery - SUBSTANCE USE Tobacco Use Status *Q: Never Tobacco User Tobacco Use Within Last Twelve Months: No Second Hand Smoke Exposure: No Days Per Week of Alcohol Use: 0 Number of Drinks Per Day: 0 Total Drinks Per Week: 0 Recreational Drug Use History: No - HOME MEDS Home Medications: Home Meds Donepezil HCl 10 mg PO DAILY 01/29/21 [History] Fish Oil/[place]-3 Fatty Acids [Fish Oil 1,000 MG] 1 each PO TID 01/29/21 [History] Methylcellulose [Fiber] 1,000 mg PO QAM 01/29/21 [History] Omeprazole Magnesium [Prilosec Otc] 40 mg PO DAILY 01/29/21 [History] Tamsulosin HCl [Flomax] 0.4 mg PO QAM 01/29/21 [History] traZODone HCl [Trazodone HCl] 100 mg PO BEDTIME 01/29/21 [History] Finasteride [Proscar] 5 mg PO DAILY 07/25/21 [History] Acetaminophen [Tylenol Extra Strength] 1,000 mg PO Q8H PRN 09/06/21 [History] Ascorbic Acid [Vitamin C] 250 mg PO DAILY 09/06/21 [History] Cholecalciferol (Vitamin D3) [Vitamin D3] 2,000 unit PO DAILY 09/06/21 [History] Folic Acid 1 mg PO DAILY 09/06/21 [History] Naproxen 500 mg PO BID PRN 09/06/21 [History] Ondansetron [Zofran Odt] 8 mg PO TID PRN 09/06/21 [History] Prochlorperazine [Compazine] 10 mg PO QID PRN 09/06/21 [History] QUEtiapine Fumarate [Seroquel] 50 mg PO DAILY 09/06/21 [History] Vitamin E 100 mg PO DAILY 09/06/21 [History] dexAMETHasone [Decadron] 8 mg PO ASDIRECTED PRN 09/06/21 [History] - CURRENT (IN HOUSE) MEDS Current Meds: Current Medications Lactated Ringer's (Ringers, Lactated) 1,000 mls @ 125 mls/hr IV ASDIRECTED [facility] Stop: 09/07/21 23:00 Lidocaine/Sodium Bicarbonate (Lidocaine 1%/Sod Bicarbonate In Ns 8.4% 1 Ml Syringe) 0.25 ml IDERM ONETIME PRN PRN Reason: Prior to IV Start Stop: 09/07/21 18:00 Sodium Chloride (Sodium Chloride 0.9% 10 Ml Syringe) 10 ml FLUSH 0900,2100 [facility] Stop: 09/07/21 18:00
[2021-09-07] MEDS ORDERED: Propofol 200 MG/20 ML SDV ONE (07:20)
[2021-09-07] MEDS ORDERED: fentaNYL 100 MCG/2 ML SDV ONE (07:20)
[2021-09-07] MEDS ORDERED: Midazolam 1 MG/ML 2 ML SDV ONE (07:21)
[2021-09-07] MEDS ORDERED: diphenhydrAMINE 50 MG/ML SDV ONE (07:46)
[2021-09-07] MEDS ORDERED: ceFAZolin 1 GM Vial ONE (08:02)
--- NOTE | 2021-09-07 09:05 | PCM48HPAN ---
Post Anesthesia Note - EVALUATION WITHIN 48HRS OF ANESTHETIC Vital Signs in Normal Range: Yes Patient Participated in Evaluation: Yes Respiratory Function Stable: Yes Airway Patent: Yes Cardiovascular Function Stable: Yes Hydration Status Stable: Yes Pain Control Satisfactory: Yes Nausea and Vomiting Control Satisfactory: Yes Mental Status Recovered: Yes Vital Signs: Last Vital Signs Temp 98.2 F 09/07/21 06:35 Pulse 64 09/07/21 06:35 Resp 17 09/07/21 06:35 BP 157/86 H 09/07/21 06:35 Pulse Ox 94 L 09/07/21 06:35 Vital signs 0900 140/74 93% RA RR 14 HR 85
[2021-09-07] MEDS ORDERED: Lactated Ringers 1,000 ML ONE (09:30)
--- NOTE | 2021-09-07 09:47 | PROC ---
DATE OF OPERATION: 09/07/2021 SURGEON: Xochitl Rodriguez MD PREOPERATIVE DIAGNOSIS: Lung cancer. POSTOPERATIVE DIAGNOSIS: Lung cancer. OPERATION PERFORMED: 1. Ultrasound-guided cannulation of right internal jugular vein. 2. Port-A-Cath placement in the right internal jugular vein. ANESTHESIA: Monitored anesthesia care with local anesthetic consisting of 1% lidocaine with epinephrine. COMPLICATIONS: None. INDICATIONS AND CONSENT: Mr. Goldman is 76. 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 The patient is recommended to undergo chemotherapy and radiation and to do this, a port placement was recommended. The patient was seen in my clinic and we discussed risks, benefits and alternatives. They appeared to be acceptable to the patient and informed consent was obtained. DETAILS OF PROCEDURE: The patient was taken to the operating room, placed in supine position and padded appropriately. Both arms were tacked. The neck was slightly extended and both the right and the left chest and neck were prepped after monitored anesthesia care was induced. Time-out was performed prior to start of the procedure. I began the procedure by surveying the neck area with an ultrasound. We were able to identify the right internal jugular vein, it appeared to be widely patent. The patient was placed in slight Trendelenburg position. Local anesthetic was infiltrated into the soft tissues and skin around the right lower neck and then a 7-[place]zech introducer needle was placed under guidance of ultrasound directly into the right internal jugular vein. Once the cannulation was performed, a guidewire was placed down into the inferior vena cava under fluoroscopic visualization. Then, the needle was removed. A small elba was placed around the site of the wire entry. At this point, the wire was secured. Then about two fingerbreadths below the clavicle, this area was selected for port placement. First, skin and soft tissues were infiltrated with local anesthetic. Then, an incision was made and the pocket for placement of the port was performed using Metzenbaum scissors. Once the pocket was done and found to be adequate for the port, soft tissues from the port site to the entry area of the catheter entry were anesthetized again with local anesthetic and using a tunneler, the catheter was tunneled subcutaneously from the site of the port placement to the site of the wire. Then, a peel-away sheath was placed over the wire under visualization of fluoroscope and wire was removed and the catheter was threaded into the peel-away sheath. Once it was confirmed to be in adequate position, the peel-away sheaths were removed and the port was secured in place and no stitches were placed directly to stitch the port in place, but 3-0 Vicryl stitches were placed to close the incision and the port was flushed and welled with dilute heparin solution. The incision was closed in one layer with 3-0 Vicryl stitches and Dermabond was placed. This marked the end of the procedure. Instruments were counted and found to be correct at the end. The patient was awoken. We will obtain a post placement chest x-ray to confirm the position. FRANK /[id number] MTDD
[2021-09-07 09:51] VITALS: BP 128/95; PULSE 80
--- NOTE | 2021-09-07 10:55 | CR ---
EXAM: XR CHEST 1 VIEW LOCATION: [facility] [employer] DATE/TIME: 09/07/2021 9:30 AM INDICATION: Catheter tip location COMPARISON: None. IMPRESSION: Right internal jugular portacatheter tip projects over the upper SVC. No additional catheter visualized centrally. Subtle appearing tubular radiopacity projects over the right medial upper arm. This could represent the tip of the PICC. Bilateral old rib fractures. Enlarged cardiac silhouette. Limited inspiratory volume. Left lateral patchy opacity could represent lung or pleural scarring or lung infiltrate. Visualized right lung appears clear. SIGNED BY: Homero Rios MD 09/07/2021 10:52 AM [facility]OL[facility]
--- NOTE | 2021-09-07 11:47 | CR ---
[facility] X-RAY RAD STUDY 09/07/2021, 9:20 AM INDICATION: Intraoperative fluoroscopic images obtained during Port-A-Cath placement. FINDINGS: Fluoroscopic images obtained during Port-A-Cath placement. Please see operative note. Fluoroscopy time: 58 seconds. 4 fluoroscopic images. SIGNED BY: Billy Mariscal MD 09/07/2021 12:41 PM ROLA
== END 2021-09-07 09:30 | disposition home or self-care (01) ==
LOC: JD.SDS 06:26
PROVIDERS: ATTEND Surgery
DX: C34.92 Malignant neoplasm of unspecified part of left bronchus or lung (principal); C78.2 Secondary malignant neoplasm of pleura; K21.9 Gastro-esophageal reflux disease without esophagitis; Z98.890 Other specified postprocedural states; Z79.899 Other long term (current) drug therapy
CPT/HCPCS: 36561; 71045; 76000; C1788; J0690; J1200; J1642; J2250; J2704; J3010; J7120; 00532; 99100

== ENCOUNTER 2022-02-27 11:21 | Day surgery (SDC) | payer MEDICARE, BC ==
[~2022-02-27 11:21] MED LIST changes: +Sodium Chloride 0.9% 10 ML Syringe FLUSH PRN
[2022-02-27] MEDS ORDERED: Propofol 200 MG/20 ML SDV ONE ×3 (11:45→12:40)
[2022-02-27] MEDS ORDERED: Lidocaine 1% 4 ML ONE (11:45)
[2022-02-27 14:27] VITALS: BP 127/88; PULSE 76
== END 2022-02-27 14:10 | disposition home or self-care (01) ==
LOC: JD.SDS 11:21
PROVIDERS: ATTEND Surgery
DX: D12.0 Benign neoplasm of cecum (principal); D12.3 Benign neoplasm of transverse colon; D12.4 Benign neoplasm of descending colon; D12.8 Benign neoplasm of rectum; K21.9 Gastro-esophageal reflux disease without esophagitis; C34.92 Malignant neoplasm of unspecified part of left bronchus or lung; G47.33 Obstructive sleep apnea (adult) (pediatric); Z98.890 Other specified postprocedural states; Z79.899 Other long term (current) drug therapy
CPT/HCPCS: 45380; 45385; J2704; J7120; 00812; 99100

== ENCOUNTER 2022-03-31 20:50 | Emergency (ER) | payer MEDICARE, BC ==
[2022-03-31 22:07] VITALS: PULSE 90
[2022-03-31] MEDS: Sodium Chloride 0.9% 10 ML Syringe FLUSH PRN ×2 (22:43→23:05)
[2022-03-31] MEDS ORDERED: Sodium Chloride 0.9% 1,000 ML IV ONE (22:48)
[2022-04-01] MEDS ORDERED: Sodium Chloride 0.9% 250 ML ONE (01:02)
[2022-04-01 06:23] VITALS: BP 117/75
== END 2022-04-01 06:52 | disposition home or self-care (01) ==
LOC: JD.ED 20:50
DX: I95.1 Orthostatic hypotension (principal); D64.9 Anemia, unspecified; K21.9 Gastro-esophageal reflux disease without esophagitis; Z79.899 Other long term (current) drug therapy; Z86.16 Personal history of COVID-19; W19.XXXA Unspecified fall, initial encounter
CPT/HCPCS: 36415; 36430; 70450; 71045; 80053; 81003; 83735; 84484; 85025; 86850; 86900; 86901; 86922; 93005; 96360; 99284; J3490; J7030; J7050; P9016; 93010

== ENCOUNTER 2022-10-24 08:42 | Emergency (ER) | payer MEDICARE, BC ==
[2022-10-24 09:28] VITALS: PULSE 64
[2022-10-24] MEDS ORDERED: Orphenadrine 100 MG Tab.ER PO STA (10:13)
[2022-10-24] MEDS ORDERED: Ibuprofen 400 MG Tab PO ONE (10:13)
[2022-10-24 10:59] VITALS: BP 123/64
== END 2022-10-24 10:50 | disposition home or self-care (01) ==
LOC: JD.ED 08:42
DX: S39.012A Strain of muscle, fascia and tendon of lower back, initial encounter (principal); K21.9 Gastro-esophageal reflux disease without esophagitis; M19.90 Unspecified osteoarthritis, unspecified site; Z85.118 Personal history of other malignant neoplasm of bronchus and lung; Z79.899 Other long term (current) drug therapy
CPT/HCPCS: 99283; A9270; 99282

== ENCOUNTER 2022-10-27 19:46 | Inpatient (IN) | payer MEDICARE, BC ==
[2022-10-27] MEDS ORDERED: Sodium Chloride 0.9% 1,000 ML IV SCH (21:45)
[2022-10-27] MEDS ORDERED: Sodium Chloride 0.9% 1,000 ML IV ONE (22:21)
[2022-10-27 22:29] LABS: CORONAVIRUS COVID-19 NAA NEGATIVE (NEGATIVE)
[2022-10-27] MEDS ORDERED: Iopamidol 755 Mg/ML 100 ML Bottle IVPUSH ONE (22:44)
[2022-10-27] MEDS ORDERED: Ibuprofen 400 MG Tab PO ONE (23:19)
[2022-10-28] MEDS ORDERED: Sodium Chloride 0.9% 1,000 ML IV ONE (00:12)
[2022-10-28] MEDS ORDERED: LORazepam 2 MG/ML SDV IVPUSH STA (01:02)
[2022-10-28] MEDS ORDERED: Acetaminophen 325 MG Tab PO PRN (03:50)
[2022-10-28] MEDS ORDERED: Sodium Chloride 0.9% 1,000 ML IV SCH (04:00)
[2022-10-28] MEDS ORDERED: Ondansetron 4 MG/2 ML SDV IVPUSH PRN (18:14)
[2022-10-28] MEDS ORDERED: Psyllium Husk Powder Sugar Free 5.85 GM Packet PO PRN (18:14)
[2022-10-28] MEDS ORDERED: hydrALAZINE 20 MG/ML SDV IVPUSH PRN (18:14)
[2022-10-28] MEDS ORDERED: Docusate Sodium 100 MG Cap PO PRN (18:14)
[2022-10-28] MEDS ORDERED: Triamcinolone Acetonide 0.1% Crm 15 GM Tube TOP PRN (18:16)
[2022-10-28] MEDS ORDERED: LIDOCAINE TOP SCH (18:30)
[2022-10-28] MEDS ORDERED: PRILOCAINE TOP SCH (18:30)
[2022-10-28] MEDS: Gabapentin 100 MG Cap PO SCH ×2 (18:47→21:01)
[2022-10-28] MEDS: Prazosin 1 MG Cap PO SCH ×2 (18:47→21:01)
[2022-10-28] MEDS: Multivitamin Tab PO SCH (18:53)
[2022-10-28] MEDS: Heparin Sodium 5,000 Units/ML Vial SUBCUT SCH (18:53)
[2022-10-28] MEDS: Pantoprazole 40 MG Tab.CR PO SCH (18:53)
[2022-10-28] MEDS: Finasteride 5 MG Tab PO SCH (18:54)
[2022-10-28] MEDS: traZODone 50 MG Tab PO SCH (21:01)
[2022-10-29] MEDS: Heparin Sodium 5,000 Units/ML Vial SUBCUT SCH ×3 (01:15→18:07)
[2022-10-29] MEDS: Gabapentin 100 MG Cap PO SCH ×3 (09:15→20:12)
[2022-10-29] MEDS: Finasteride 5 MG Tab PO SCH (09:15)
[2022-10-29] MEDS: Sertraline 50 MG Tab PO SCH (09:15)
[2022-10-29] MEDS: Multivitamin Tab PO SCH (09:15)
[2022-10-29] MEDS: Pantoprazole 40 MG Tab.CR PO SCH (09:15)
[2022-10-29] MEDS ORDERED: Sodium Chloride 0.9% 1,000 ML IV SCH (10:00)
[2022-10-29] MEDS: Lidocaine 4% 1 each Patch TOP SCH (10:15)
[2022-10-29] MEDS: Acetaminophen/oxyCODONE 325-5 MG Tab PO PRN (18:57)
[2022-10-29] MEDS: Acetaminophen 325 MG Tab PO PRN (20:13)
[2022-10-29] MEDS: traZODone 50 MG Tab PO SCH (20:13)
[2022-10-29] MEDS: Prazosin 1 MG Cap PO SCH (20:13)
[2022-10-29] MEDS: HYDROmorphone 0.5 MG/0.5 ML Syringe IVPUSH PRN (23:32)
[2022-10-30] MEDS: Acetaminophen/oxyCODONE 325-5 MG Tab PO PRN ×3 (02:02→17:46)
[2022-10-30] MEDS: Heparin Sodium 5,000 Units/ML Vial SUBCUT SCH ×3 (02:02→17:47)
[2022-10-30] MEDS: Acetaminophen 325 MG Tab PO PRN ×2 (07:19→20:53)
[2022-10-30] MEDS: Gabapentin 100 MG Cap PO SCH ×3 (08:23→20:51)
[2022-10-30] MEDS: Finasteride 5 MG Tab PO SCH (08:24)
[2022-10-30] MEDS: Multivitamin Tab PO SCH (08:24)
[2022-10-30] MEDS: Pantoprazole 40 MG Tab.CR PO SCH (08:24)
[2022-10-30] MEDS: Sertraline 50 MG Tab PO SCH (08:24)
[2022-10-30] MEDS: Lidocaine 4% 1 each Patch TOP SCH (08:25)
[2022-10-30] MEDS: Potassium Chloride 20 MEQ Tab.ER PO SCH (09:53)
[2022-10-30] MEDS: Prazosin 1 MG Cap PO SCH (20:51)
[2022-10-30] MEDS: traZODone 50 MG Tab PO SCH (20:51)
[2022-10-30] MEDS: HYDROmorphone 0.5 MG/0.5 ML Syringe IVPUSH PRN (22:28)
[2022-10-31] MEDS: Acetaminophen/oxyCODONE 325-5 MG Tab PO PRN ×2 (00:25→22:05)
[2022-10-31] MEDS: Heparin Sodium 5,000 Units/ML Vial SUBCUT SCH ×4 (02:05→17:42)
[2022-10-31] MEDS: Acetaminophen 325 MG Tab PO PRN ×2 (02:45→08:39)
[2022-10-31] MEDS: Gabapentin 100 MG Cap PO SCH ×3 (08:38→22:05)
[2022-10-31] MEDS: Lidocaine 4% 1 each Patch TOP SCH (08:38)
[2022-10-31] MEDS: Sertraline 50 MG Tab PO SCH (08:39)
[2022-10-31] MEDS: Pantoprazole 40 MG Tab.CR PO SCH (08:40)
[2022-10-31] MEDS: Multivitamin Tab PO SCH (08:40)
[2022-10-31] MEDS: Finasteride 5 MG Tab PO SCH (08:40)
[2022-10-31] MEDS: Potassium Chloride 20 MEQ Tab.ER PO SCH (08:40)
[2022-10-31] MEDS: traZODone 50 MG Tab PO SCH (22:05)
[2022-11-01] MEDS: Acetaminophen 325 MG Tab PO PRN ×2 (00:50→08:52)
[2022-11-01] MEDS: Heparin Sodium 5,000 Units/ML Vial SUBCUT SCH ×3 (02:58→18:26)
[2022-11-01] MEDS: Acetaminophen/oxyCODONE 325-5 MG Tab PO PRN ×2 (05:48→20:56)
[2022-11-01] MEDS: Gabapentin 100 MG Cap PO SCH ×3 (08:46→20:57)
[2022-11-01] MEDS: Lidocaine 4% 1 each Patch TOP SCH ×2 (08:46→20:56)
[2022-11-01] MEDS: Multivitamin Tab PO SCH (08:46)
[2022-11-01] MEDS: Pantoprazole 40 MG Tab.CR PO SCH (08:47)
[2022-11-01] MEDS: Potassium Chloride 20 MEQ Tab.ER PO SCH (08:47)
[2022-11-01] MEDS: Sertraline 50 MG Tab PO SCH (08:47)
[2022-11-01] MEDS: Finasteride 5 MG Tab PO SCH (08:47)
[2022-11-01] MEDS: Tamsulosin 0.4 MG Cap.ER PO SCH (09:01)
[2022-11-01] MEDS: LORazepam 0.5 MG Tab PO PRN (20:56)
[2022-11-01] MEDS: traZODone 50 MG Tab PO SCH (20:57)
[2022-11-02] MEDS: Heparin Sodium 5,000 Units/ML Vial SUBCUT SCH ×3 (04:47→18:39)
[2022-11-02] MEDS: Acetaminophen/oxyCODONE 325-5 MG Tab PO PRN ×2 (05:32→20:55)
[2022-11-02] MEDS: Gabapentin 100 MG Cap PO SCH ×3 (08:28→20:54)
[2022-11-02] MEDS: Pantoprazole 40 MG Tab.CR PO SCH (08:28)
[2022-11-02] MEDS: Sertraline 50 MG Tab PO SCH (08:28)
[2022-11-02] MEDS: Multivitamin Tab PO SCH (08:29)
[2022-11-02] MEDS: Finasteride 5 MG Tab PO SCH (08:29)
[2022-11-02] MEDS: Potassium Chloride 20 MEQ Tab.ER PO SCH (08:29)
[2022-11-02] MEDS ORDERED: Diclofenac Sodium 1% Gel 100 GM Tube TOP PRN (09:15)
[2022-11-02] MEDS: Tamsulosin 0.4 MG Cap.ER PO SCH (09:58)
[2022-11-02] MEDS: cefTRIAXone 1 GM in Sodium Chloride 0.9% 100 ML IV SCH (10:21)
[2022-11-02] MEDS: traZODone 50 MG Tab PO SCH (20:54)
[2022-11-02] MEDS: Lidocaine 4% 1 each Patch TOP SCH (20:59)
[2022-11-02] MEDS: LORazepam 0.5 MG Tab PO PRN (20:59)
[2022-11-03] MEDS: Heparin Sodium 5,000 Units/ML Vial SUBCUT SCH ×3 (03:10→17:44)
[2022-11-03] MEDS: Pantoprazole 40 MG Tab.CR PO SCH (09:01)
[2022-11-03] MEDS: Gabapentin 100 MG Cap PO SCH ×3 (09:01→20:00)
[2022-11-03] MEDS: Multivitamin Tab PO SCH (09:02)
[2022-11-03] MEDS: Tamsulosin 0.4 MG Cap.ER PO SCH (09:02)
[2022-11-03] MEDS: Sertraline 50 MG Tab PO SCH (09:02)
[2022-11-03] MEDS: Finasteride 5 MG Tab PO SCH (09:02)
[2022-11-03] MEDS: cefTRIAXone 1 GM in Sodium Chloride 0.9% 100 ML IV SCH (09:38)
[2022-11-03] MEDS: Acetaminophen/oxyCODONE 325-5 MG Tab PO PRN ×2 (13:35→20:00)
[2022-11-03] MEDS: LORazepam 0.5 MG Tab PO PRN (20:00)
[2022-11-03] MEDS: Lidocaine 4% 1 each Patch TOP SCH (20:04)
[2022-11-03] MEDS: traZODone 50 MG Tab PO SCH (20:09)
[2022-11-04] MEDS: Heparin Sodium 5,000 Units/ML Vial SUBCUT SCH ×3 (03:11→19:50)
[2022-11-04] MEDS: Tamsulosin 0.4 MG Cap.ER PO SCH (09:41)
[2022-11-04] MEDS: Sertraline 50 MG Tab PO SCH (09:42)
[2022-11-04] MEDS: Multivitamin Tab PO SCH (09:42)
[2022-11-04] MEDS: Gabapentin 100 MG Cap PO SCH ×3 (09:42→19:50)
[2022-11-04] MEDS: Finasteride 5 MG Tab PO SCH (09:43)
[2022-11-04] MEDS: Pantoprazole 40 MG Tab.CR PO SCH (09:43)
[2022-11-04] MEDS: cefTRIAXone 1 GM in Sodium Chloride 0.9% 100 ML IV SCH (09:45)
[2022-11-04] MEDS: Acetaminophen 325 MG Tab PO PRN (13:38)
[2022-11-04] MEDS: Acetaminophen/oxyCODONE 325-5 MG Tab PO PRN (19:48)
[2022-11-04] MEDS: Lidocaine 4% 1 each Patch TOP SCH (19:50)
[2022-11-04] MEDS ORDERED: diphenhydrAMINE 50 MG Cap PO ONE (20:41)
[2022-11-04] MEDS: traZODone 50 MG Tab PO SCH (21:13)
[2022-11-05] MEDS: Lidocaine 4% 1 each Patch TOP SCH ×2 (01:23→22:19)
[2022-11-05] MEDS: Gabapentin 100 MG Cap PO SCH ×4 (01:23→22:19)
[2022-11-05] MEDS: Acetaminophen/oxyCODONE 325-5 MG Tab PO PRN ×2 (03:41→22:19)
[2022-11-05] MEDS: Heparin Sodium 5,000 Units/ML Vial SUBCUT SCH ×3 (03:41→18:46)
[2022-11-05] MEDS: Finasteride 5 MG Tab PO SCH (08:59)
[2022-11-05] MEDS: Tamsulosin 0.4 MG Cap.ER PO SCH (08:59)
[2022-11-05] MEDS: Multivitamin Tab PO SCH (08:59)
[2022-11-05] MEDS: Sertraline 50 MG Tab PO SCH (08:59)
[2022-11-05] MEDS: Pantoprazole 40 MG Tab.CR PO SCH (09:00)
[2022-11-05] MEDS: cefTRIAXone 1 GM in Sodium Chloride 0.9% 100 ML IV SCH (09:30)
[2022-11-05] MEDS: Acetaminophen 325 MG Tab PO PRN (13:30)
[2022-11-05] MEDS: traZODone 50 MG Tab PO SCH (22:19)
[2022-11-05] MEDS: Saccharomyces Boulardii (Probiotic) 250 MG Cap PO SCH (22:19)
[2022-11-06] MEDS: Heparin Sodium 5,000 Units/ML Vial SUBCUT SCH ×3 (02:24→11:44)
[2022-11-06] MEDS ORDERED: Cefdinir 300 MG Cap PO SCH (09:00)
[2022-11-06] MEDS: Saccharomyces Boulardii (Probiotic) 250 MG Cap PO SCH (09:04)
[2022-11-06] MEDS: Multivitamin Tab PO SCH (09:04)
[2022-11-06] MEDS: Gabapentin 100 MG Cap PO SCH (09:04)
[2022-11-06] MEDS: Tamsulosin 0.4 MG Cap.ER PO SCH (09:05)
[2022-11-06] MEDS: Finasteride 5 MG Tab PO SCH (09:05)
[2022-11-06] MEDS: Sertraline 50 MG Tab PO SCH (09:05)
[2022-11-06] MEDS: Pantoprazole 40 MG Tab.CR PO SCH (09:05)
[2022-11-06 12:29] VITALS: BP 100/74; PULSE 97
== END 2022-11-06 12:53 | DRG 683 ==
LOC: JD.ED 19:46 → JD.MS 10-28 02:25
PROVIDERS: ADMIT Internal Medicine; ATTEND Internal Medicine
DX: N17.9 Acute kidney failure, unspecified (principal); C34.92 Malignant neoplasm of unspecified part of left bronchus or lung; N39.0 Urinary tract infection, site not specified; R53.1 Weakness; Z20.822 Contact with and (suspected) exposure to COVID-19; C34.90 Malignant neoplasm of unspecified part of unspecified bronchus or lung; I95.1 Orthostatic hypotension; B95.2 Enterococcus as the cause of diseases classified elsewhere; E66.9 Obesity, unspecified; B96.89 Other specified bacterial agents as the cause of diseases classified elsewhere; D64.9 Anemia, unspecified; R07.89 Other chest pain; H91.90 Unspecified hearing loss, unspecified ear; H54.7 Unspecified visual loss; K21.9 Gastro-esophageal reflux disease without esophagitis; N40.1 Benign prostatic hyperplasia with lower urinary tract symptoms; R33.8 Other retention of urine; M19.90 Unspecified osteoarthritis, unspecified site; Z86.16 Personal history of COVID-19; G47.33 Obstructive sleep apnea (adult) (pediatric); Z79.899 Other long term (current) drug therapy
CPT/HCPCS: 0241U; 36415; 36600; 51702; 70450; 71045; 71275; 74177; 80048; 80053; 81001; 82550; 82803; 82947; 83605; 83735; 83880; 84443; 84484; 85007; 85025; 85027; 85610; 85730; 87040; 87086; 87088; 87186; 93005; 93306; 94762; 96361; 96374; 97110; 97116; 97162; 97166; 99285; 93010; A9270-GY; J0696; J1170; J1644; J2060; J3490; J7030; Q9967; U0002

== ENCOUNTER 2023-03-24 19:34 | Emergency (ER) | payer MEDICARE, BC ==
[2023-03-24] MEDS ORDERED: Sodium Chloride 0.9% 1,000 ML IV ONE (20:13)
[2023-03-24] MEDS ORDERED: Ondansetron 4 MG/2 ML SDV IVPUSH ONE (20:13)
[2023-03-24 20:47] LABS: BASOPHILS ABSOLUTE AUTO 0.01 K/mm3 (0.01-0.08); BASOPHILS PERCENT AUTO 0.1 % (0.1-1.2); EOSINOPHILS ABSOLUTE AUTO 0.02 K/mm3 (0.04-0.54); EOSINOPHILS PERCENT AUTO 0.2 (0.8-7.0); HEMATOCRIT 39.1 % (40.1-51.0); IMMATURE GRAN ABSOLUTE AUTO 0.01 K/mm3 (0.00-0.10); IMMATURE GRAN PERCENT AUTO 0.1 % (<=1.0); LYMPHOCYTES ABSOLUTE AUTO 1.03 K/mm3 (1.32-3.57); LYMPHOCYTES PERCENT AUTO 12.3 % (21.8-53.1); MEAN CORPUSCULAR HEMOGLOBIN 30.4 pg (25.7-32.2); MEAN CORPUSCULAR HGB CONC 33.2 g/dl (32.2-35.5); MEAN CORPUSCULAR VOLUME 91.6 fl (79.0-92.2); MEAN PLATELET VOLUME 8.7 fl (9.4-12.3); MONOCYTES ABSOLUTE AUTO 0.46 K/mm3 (0.30-0.82); MONOCYTES PERCENT AUTO 5.5 % (5.3-12.2); NEUTROPHILS ABSOLUTE AUTO 6.86 K/mm3 (1.78-5.38); NEUTROPHILS PERCENT AUTO 81.8 % (34.0-67.9); PLATELET COUNT,PLT 195 K/mm3 (163-337); RED BLOOD CELL COUNT 4.27 M/mm3 (4.63-6.08); WHITE BLOOD CELL COUNT,WBC 8.39 K/mm3 (4.23-9.07)
[2023-03-24 21:17] LABS: A/G RATIO 0.9 (1-2); ALBUMIN 3.5 g/dl (3.4-5.0); ANION GAP 14.2 (5-15); BILIRUBIN TOTAL 1.2 mg/dL (0.2-1.0); BUN/CREATININE RATIO 17.3 (14-18); CALCIUM 9.2 mg/dL (8.5-10.1); CREATININE 1.1 mg/dL (0.7-1.3); MAGNESIUM 1.9 mg/dL (1.8-2.4); POTASSIUM,K 4.2 mEq/L (3.5-5.1); PROTEIN TOTAL,TP 7.3 g/dl (6.4-8.2)
[2023-03-25 01:18] VITALS: BP 146/70; PULSE 67
== END 2023-03-24 22:42 | disposition home or self-care (01) ==
LOC: JD.ED 19:34
DX: R11.2 Nausea with vomiting, unspecified (principal); K21.9 Gastro-esophageal reflux disease without esophagitis; E66.9 Obesity, unspecified; Z68.28 Body mass index [BMI] 28.0-28.9, adult; Z86.16 Personal history of COVID-19; Z79.899 Other long term (current) drug therapy
CPT/HCPCS: 36415; 80053; 83735; 85025; 96361; 96374; 99284; J2405; J7030

== ENCOUNTER 2023-04-01 21:42 | Emergency (ER) | payer MEDICARE, BC ==
[2023-04-02 04:22] VITALS: BP 145/90; PULSE 90
== END 2023-04-02 04:14 | disposition home or self-care (01) ==
LOC: JD.ED 21:42
DX: K59.00 Constipation, unspecified (principal); K21.9 Gastro-esophageal reflux disease without esophagitis; Z86.16 Personal history of COVID-19; Z79.899 Other long term (current) drug therapy
CPT/HCPCS: 74018; 74018-26; 99283

== ENCOUNTER 2025-01-07 10:30 | Emergency (ER) | payer MEDICARE, BC ==
[2025-01-07 14:13] VITALS: BP 123/58; PULSE 95
== END 2025-01-07 13:49 | disposition home or self-care (01) ==
LOC: JD.ED 10:30
DX: K59.00 Constipation, unspecified (principal); C34.92 Malignant neoplasm of unspecified part of left bronchus or lung; K21.9 Gastro-esophageal reflux disease without esophagitis; E66.9 Obesity, unspecified; Z79.899 Other long term (current) drug therapy; Z86.16 Personal history of COVID-19
CPT/HCPCS: 71045; 71045-26; 74018; 74018-26; 99283

== ENCOUNTER 2025-01-29 10:22 | Inpatient (IN) | payer MEDICARE, BC ==
[2025-01-29] MEDS ORDERED: Sodium Chloride 0.9% 10 ML Syringe FLUSH PRN ×2 (10:59)
[2025-01-29 11:32] LABS: BASOPHILS PERCENT AUTO 0.1 % (0.0-1.0); HEMATOCRIT 34.5 % (42.0-52.0); HEMOGLOBIN 10.8 gm/dl (14.0-18.0); IMMATURE GRAN ABSOLUTE AUTO 0.04 K/mm3 (0.00-0.05); IMMATURE GRAN PERCENT AUTO 0.5 % (0.0-0.4); LYMPHOCYTES ABSOLUTE AUTO 0.4 K/mm3 (1.0-4.8); LYMPHOCYTES PERCENT AUTO 5.3 % (24.0-44.0); MEAN CORPUSCULAR HEMOGLOBIN 31.2 pg (28.0-32.0); MEAN CORPUSCULAR HGB CONC 31.3 g/dl (32.0-36.0); MEAN CORPUSCULAR VOLUME 99.7 fl (83.0-99.0); MEAN PLATELET VOLUME 9.6 fl (9.4-12.4); MONOCYTES ABSOLUTE AUTO 0.4 K/mm3 (0.0-0.8); MONOCYTES PERCENT AUTO 5.7 % (0.0-8.0); NEUTROPHILS ABSOLUTE AUTO 6.7 K/mm3 (1.8-7.7); NEUTROPHILS PERCENT AUTO 88.4 % (41.0-71.0); PLATELET COUNT,PLT 162 K/mm3 (150-400); RED BLOOD CELL COUNT 3.46 M/mm3 (4.52-5.90); WHITE BLOOD CELL COUNT,WBC 7.56 K/mm3 (3.9-11.3)
[2025-01-29 11:46] LABS: INR 1.03; PROTHROMBIN TIME 10.9 SECONDS (9.7-12.0)
[2025-01-29 11:59] LABS: A/G RATIO 0.8 (1-2); ALBUMIN 2.8 g/dl (3.4-5.0); ANION GAP 14.5 (5-15); BUN/CREATININE RATIO 21.5 (14-18); CALCIUM 8.8 mg/dL (8.5-10.1); CREATININE 1.3 mg/dL (0.7-1.3); EST CRCL DRUG DOSING (CG) 47.46 mL/min; POTASSIUM,K 4.5 mEq/L (3.5-5.1); PROTEIN TOTAL,TP 6.2 g/dl (6.4-8.2)
[2025-01-29 15:47] LABS: APPEARANCE,URINE CLEAR (Clear); BILIRUBIN,URINE NEGATIVE (Negative); COLOR,URINE YELLOW (Yellow); GLUCOSE,URINE 3+ (Negative); KETONES,URINE NEGATIVE (Negative); LEUKOCYTE ESTERASE,URINE NEGATIVE (Negative); NITRITE,URINE NEGATIVE (Negative); OCCULT BLOOD,URINE NEGATIVE (Negative); PROTEIN,URINE NEGATIVE (Negative); UROBILINOGEN,URINE 0.2 (0.2-1.0)
[2025-01-29] MEDS: Apixaban 5 MG Tab PO SCH (21:01)
[2025-01-29] MEDS: Sodium Chloride 0.9% 1,000 ML IV SCH (21:01)
[2025-01-29] MEDS: Calcium Carbonate/Vitamin D3 600 MG-200 Units Tab PO SCH (21:01)
[2025-01-29] MEDS: Gabapentin 300 MG Cap PO SCH (21:01)
[2025-01-29] MEDS: Sennosides/Docusate Sodium 50-8.6 MG Tab PO SCH (21:01)
[2025-01-29] MEDS: Tamsulosin 0.4 MG Cap.ER PO SCH (21:01)
[2025-01-30] MEDS ORDERED: Naloxone 0.4 MG/ML SDV IVPUSH PRN (05:26)
[2025-01-30] MEDS ORDERED: Morphine 2 MG/ML SYRINGE IVPUSH PRN (05:26)
[2025-01-30] MEDS ORDERED: Gabapentin 100 MG Cap PO SCH (08:00)
[2025-01-30] MEDS: Polyethylene Glycol 3350 Powder 17 GM Packet PO SCH (08:36)
[2025-01-30] MEDS: Calcitonin (Salmon) Nasal Spray 3.7 ML Bottle NAS SCH (08:37)
[2025-01-30] MEDS: Metoprolol Succinate 25 MG Tab.ER PO SCH (08:39)
[2025-01-30] MEDS: Acetaminophen 325 MG Tab PO SCH (08:39)
[2025-01-30] MEDS: Finasteride 5 MG Tab PO SCH (08:40)
[2025-01-30] MEDS: Gabapentin 100 MG Cap PO SCH (08:41)
[2025-01-30] MEDS: fentaNYL 12 MCG/HR Transdermal Patch TRDERM SCH (13:03)
[2025-01-30] MEDS: fentaNYL 25 MCG/HR Transdermal Patch TRDERM SCH (13:03)
[2025-01-30] MEDS: Furosemide 40 MG/4 ML VIAL IVPUSH ONE (14:56)
[2025-01-31] MEDS: Furosemide 20 MG Tab PO SCH (08:48)
[2025-01-31] MEDS: Empagliflozin 10 MG Tab PO SCH (08:48)
[2025-01-31 08:54] VITALS: PULSE 103
[2025-01-31 09:44] LABS: BASOPHILS PERCENT AUTO 0.3 % (0.0-1.0); EOSINOPHILS PERCENT AUTO 0.3 % (0.0-6.0); HEMATOCRIT 37.2 % (42.0-52.0); HEMOGLOBIN 11.6 gm/dl (14.0-18.0); IMMATURE GRAN ABSOLUTE AUTO 0.03 K/mm3 (0.00-0.05); IMMATURE GRAN PERCENT AUTO 0.4 % (0.0-0.4); LYMPHOCYTES ABSOLUTE AUTO 0.4 K/mm3 (1.0-4.8); LYMPHOCYTES PERCENT AUTO 5.1 % (24.0-44.0); MEAN CORPUSCULAR HEMOGLOBIN 31.3 pg (28.0-32.0); MEAN CORPUSCULAR HGB CONC 31.2 g/dl (32.0-36.0); MEAN CORPUSCULAR VOLUME 100.3 fl (83.0-99.0); MEAN PLATELET VOLUME 10.3 fl (9.4-12.4); MONOCYTES ABSOLUTE AUTO 0.3 K/mm3 (0.0-0.8); MONOCYTES PERCENT AUTO 4.1 % (0.0-8.0); NEUTROPHILS ABSOLUTE AUTO 6.8 K/mm3 (1.8-7.7); NEUTROPHILS PERCENT AUTO 89.8 % (41.0-71.0); PLATELET COUNT,PLT 130 K/mm3 (150-400); RED BLOOD CELL COUNT 3.71 M/mm3 (4.52-5.90); WHITE BLOOD CELL COUNT,WBC 7.61 K/mm3 (3.9-11.3)
[2025-01-31 10:06] LABS: ANION GAP 7.9 (5-15); BUN/CREATININE RATIO 28.2 (14-18); CALCIUM 8.9 mg/dL (8.5-10.1); CREATININE 1.1 mg/dL (0.7-1.3); EST CRCL DRUG DOSING (CG) 56.09 mL/min; POTASSIUM,K 3.9 mEq/L (3.5-5.1)
[2025-01-31] MEDS: Bisacodyl 5 MG Tab PO SCH (11:35)
[2025-01-31 11:52] VITALS: BP 117/85
== END 2025-01-31 13:06 | disposition home or self-care (01) | DRG 555 ==
LOC: JD.ED 10:22 → JD.MS 16:35
PROVIDERS: ADMIT Family Medicine; ATTEND Family Medicine
DX: M25.552 Pain in left hip (principal); G92.8 Other toxic encephalopathy; C78.00 Secondary malignant neoplasm of unspecified lung; J96.11 Chronic respiratory failure with hypoxia; G89.29 Other chronic pain; H91.90 Unspecified hearing loss, unspecified ear; H54.7 Unspecified visual loss; G47.30 Sleep apnea, unspecified; R53.1 Weakness; K44.9 Diaphragmatic hernia without obstruction or gangrene; N40.0 Benign prostatic hyperplasia without lower urinary tract symptoms; M19.90 Unspecified osteoarthritis, unspecified site; F03.90 Unspecified dementia, unspecified severity, without behavioral disturbance, psychotic disturbance, mood disturbance, and anxiety; F32.A Depression, unspecified; E66.9 Obesity, unspecified; I48.91 Unspecified atrial fibrillation; R53.81 Other malaise; M54.9 Dorsalgia, unspecified; K21.9 Gastro-esophageal reflux disease without esophagitis; Z86.16 Personal history of COVID-19; Z68.27 Body mass index [BMI] 27.0-27.9, adult; Z98.890 Other specified postprocedural states; Z79.01 Long term (current) use of anticoagulants; Z99.81 Dependence on supplemental oxygen; Z79.899 Other long term (current) drug therapy
CPT/HCPCS: 36415; 70450; 70450-26; 71045; 71045-26; 73502-26-LT; 73502-LT; 80048; 80053; 81003; 83735; 83880; 84484; 85025; 85610; 87040; 93005; 94660; 94761; 97110-GP; 97116-GP; 97161-GP; 97530-GP; 99285; A9270-GY; J1938; J7030

== ENCOUNTER 2025-02-02 14:48 | Inpatient (IN) | payer MEDICARE, BC ==
[2025-02-02] MEDS: HYDROmorphone 0.5 MG/0.5 ML Syringe IVPUSH ONE ×2 (15:34→16:36)
[2025-02-02] MEDS: LORazepam 2 MG/ML SDV IVPUSH ONE (15:37)
[2025-02-02] MEDS: Sodium Chloride 0.9% 10 ML Syringe FLUSH PRN (15:37)
[2025-02-02 15:40] LABS: BASOPHILS PERCENT AUTO 0.3 % (0.0-1.0); HEMATOCRIT 35.9 % (42.0-52.0); HEMOGLOBIN 11.3 gm/dl (14.0-18.0); IMMATURE GRAN ABSOLUTE AUTO 0.05 K/mm3 (0.00-0.05); IMMATURE GRAN PERCENT AUTO 0.7 % (0.0-0.4); LYMPHOCYTES ABSOLUTE AUTO 0.6 K/mm3 (1.0-4.8); LYMPHOCYTES PERCENT AUTO 8.4 % (24.0-44.0); MEAN CORPUSCULAR HEMOGLOBIN 31.1 pg (28.0-32.0); MEAN CORPUSCULAR HGB CONC 31.5 g/dl (32.0-36.0); MEAN CORPUSCULAR VOLUME 98.9 fl (83.0-99.0); MEAN PLATELET VOLUME 10.5 fl (9.4-12.4); MONOCYTES ABSOLUTE AUTO 0.6 K/mm3 (0.0-0.8); MONOCYTES PERCENT AUTO 8.9 % (0.0-8.0); NEUTROPHILS ABSOLUTE AUTO 5.5 K/mm3 (1.8-7.7); NEUTROPHILS PERCENT AUTO 81.7 % (41.0-71.0); PLATELET COUNT,PLT 140 K/mm3 (150-400); RED BLOOD CELL COUNT 3.63 M/mm3 (4.52-5.90); WHITE BLOOD CELL COUNT,WBC 6.76 K/mm3 (3.9-11.3)
[2025-02-02 16:08] LABS: A/G RATIO 0.5 (1-2); ALANINE AMINOTRANSFERASE,ALT 24 U/L (16-63); ALBUMIN 2.1 g/dl (3.4-5.0); ALKALINE PHOSPHATASE 44 U/L (46-116); ANION GAP 13.1 (5-15); ASPARTATE AMNIOTRANSFERASE,AST 23 U/L (15-37); BILIRUBIN TOTAL 0.8 mg/dL (0.2-1.0); BLOOD UREA NITROGEN,BUN 25 mg/dL (7-18); BUN/CREATININE RATIO 22.7 (14-18); CALCIUM 9.1 mg/dL (8.5-10.1); CARBON DIOXIDE,CO2 26 mEq/L (21-32); CHLORIDE,CL 101 mEq/L (98-107); CREATININE 1.1 mg/dL (0.7-1.3); ESTIMATED GFR 67 mL/min (>60); GLUCOSE RANDOM 152 mg/dL (70-99); MAGNESIUM 1.9 mg/dL (1.8-2.4); POTASSIUM,K 4.1 mEq/L (3.5-5.1); PROTEIN TOTAL,TP 6.2 g/dl (6.4-8.2); SODIUM,NA 136 mEq/L (136-145); TROPONIN I HIGH SENSITIVITY 9 pg/mL (<=76)
[2025-02-02 16:18] LABS: C-REACTIVE PROTEIN > 25.00 mg/dL (<0.30)
[2025-02-02] MEDS: HYDROmorphone 0.5 MG/0.5 ML Syringe ONE (16:36)
[2025-02-02 21:29] LABS: APPEARANCE,URINE CLEAR (Clear); BILIRUBIN,URINE NEGATIVE (Negative); COLOR,URINE YELLOW (Yellow); GLUCOSE,URINE 2+ (Negative); KETONES,URINE NEGATIVE (Negative); LEUKOCYTE ESTERASE,URINE NEGATIVE (Negative); NITRITE,URINE NEGATIVE (Negative); OCCULT BLOOD,URINE NEGATIVE (Negative); PH,URINE 6.5 (5.0-8.0); PROTEIN,URINE NEGATIVE (Negative); UROBILINOGEN,URINE 0.2 (0.2-1.0)
[2025-02-02 21:51] LABS: BACTERIA,URINE FEW /hpf (FEW); MUCUS,URINE FEW /hpf (FEW); RBC,URINE 0-5 /hpf (0-5); SQUAMOUS EPITHELIAL CELLS,UR 0-5 /hpf (0-5); WBC,URINE 0-5 /hpf (0-5)
[2025-02-03] MEDS: Apixaban 5 MG Tab PO SCH (10:17)
[2025-02-03] MEDS: Sennosides/Docusate Sodium 50-8.6 MG Tab PO SCH (10:17)
[2025-02-03] MEDS: Acetaminophen 325 MG Tab PO SCH (10:18)
[2025-02-03] MEDS: Calcitonin (Salmon) Nasal Spray 3.7 ML Bottle NAS SCH (10:23)
[2025-02-03] MEDS: Gabapentin 100 MG Cap PO SCH ×2 (10:27→20:52)
[2025-02-03] MEDS: Bisacodyl 5 MG Tab PO SCH (15:34)
[2025-02-03] MEDS: Polyethylene Glycol 3350 Powder 17 GM Packet PO SCH (16:37)
[2025-02-03] MEDS: Midodrine 5 MG Tab PO SCH (18:55)
[2025-02-03] MEDS: Tamsulosin 0.4 MG Cap.ER PO SCH (20:52)
[2025-02-04 07:47] LABS: BASOPHILS PERCENT AUTO 0.8 % (0.0-1.0); EOSINOPHILS PERCENT AUTO 0.4 % (0.0-6.0); HEMATOCRIT 33.6 % (42.0-52.0); HEMOGLOBIN 10.5 gm/dl (14.0-18.0); IMMATURE GRAN ABSOLUTE AUTO 0.03 K/mm3 (0.00-0.05); IMMATURE GRAN PERCENT AUTO 0.6 % (0.0-0.4); LYMPHOCYTES ABSOLUTE AUTO 0.7 K/mm3 (1.0-4.8); LYMPHOCYTES PERCENT AUTO 14.2 % (24.0-44.0); MEAN CORPUSCULAR HEMOGLOBIN 30.5 pg (28.0-32.0); MEAN CORPUSCULAR HGB CONC 31.3 g/dl (32.0-36.0); MEAN CORPUSCULAR VOLUME 97.7 fl (83.0-99.0); MONOCYTES ABSOLUTE AUTO 0.7 K/mm3 (0.0-0.8); MONOCYTES PERCENT AUTO 13.4 % (0.0-8.0); NEUTROPHILS ABSOLUTE AUTO 3.6 K/mm3 (1.8-7.7); NEUTROPHILS PERCENT AUTO 70.6 % (41.0-71.0); PLATELET COUNT,PLT 158 K/mm3 (150-400); RED BLOOD CELL COUNT 3.44 M/mm3 (4.52-5.90); WHITE BLOOD CELL COUNT,WBC 5.06 K/mm3 (3.9-11.3)
[2025-02-04 08:06] LABS: ANION GAP 11.9 (5-15); BUN/CREATININE RATIO 26.7 (14-18); CALCIUM 8.7 mg/dL (8.5-10.1); CREATININE 0.9 mg/dL (0.7-1.3); EST CRCL DRUG DOSING (CG) 64.37 mL/min; POTASSIUM,K 3.9 mEq/L (3.5-5.1)
[2025-02-04] MEDS: Polyethylene Glycol 3350 Powder 17 GM Packet PO SCH (08:16)
[2025-02-04] MEDS: cefTRIAXone 1 GM Vial IVPUSH SCH (08:17)
[2025-02-04] MEDS: Finasteride 5 MG Tab PO SCH (08:18)
[2025-02-04] MEDS: Furosemide 20 MG Tab PO SCH (08:22)
[2025-02-04] MEDS: Metoprolol Succinate 25 MG Tab.ER PO SCH (08:22)
[2025-02-04] MEDS: Spironolactone 25 MG Tab PO SCH (08:23)
[2025-02-04] MEDS: Empagliflozin 10 MG Tab PO SCH (08:23)
[2025-02-04] MEDS: Sodium Chloride 0.9% 10 ML Syringe FLUSH PRN (08:57)
[2025-02-04] MEDS: Iopamidol 612 MG/ML 100 ML Bottle IVPUSH ONE (08:57)
[2025-02-04] MEDS: guaiFENesin 600 MG Tab.ER PO SCH (18:14)
[2025-02-04] MEDS: Doxycycline 100 MG in Sodium Chloride 0.9% 100 ML IV SCH (18:18)
[2025-02-04] MEDS ORDERED: Albuterol/Ipratropium 3.0-0.5 MG/3 ML Neb Soln NEB SCH (21:00)
[2025-02-04] MEDS: Albuterol/Ipratropium 3.0-0.5 MG/3 ML Neb Soln NEB PRN (21:03)
[2025-02-04] MEDS: Sodium Chloride 3% Inhalation Soln 4 ML Neb NEB SCH (21:03)
[2025-02-04] MEDS: Acetylcysteine 20% 200 MG/ML 4 ML Nebulizer Soln SDV NEB SCH (21:03)
[2025-02-05] MEDS: Doxycycline 100 MG in Sodium Chloride 0.9% 100 ML IV SCH (06:02)
[2025-02-05 14:26] VITALS: BP 114/71; PULSE 75
[2025-02-06 09:47] LABS: ANA BY ELISA, IGG W/RFX TO IFA None Detected (None Detected)
== END 2025-02-05 15:34 | DRG 92 ==
LOC: JD.ED 14:48 → JD.MS 18:10
PROVIDERS: ADMIT Family Medicine; ATTEND Family Medicine
PROC: 5A0935A Assistance with Respiratory Ventilation, Less than 24 Consecutive Hours, High Flow/Velocity Cannula (ICD-10-PCS; principal; 2025-02-02)
DX: M54.50 Low back pain, unspecified (principal); G92.8 Other toxic encephalopathy; C34.90 Malignant neoplasm of unspecified part of unspecified bronchus or lung; R53.1 Weakness; R41.0 Disorientation, unspecified; C78.00 Secondary malignant neoplasm of unspecified lung; J96.11 Chronic respiratory failure with hypoxia; H91.90 Unspecified hearing loss, unspecified ear; H54.7 Unspecified visual loss; I50.9 Heart failure, unspecified; G47.30 Sleep apnea, unspecified; K21.9 Gastro-esophageal reflux disease without esophagitis; K44.9 Diaphragmatic hernia without obstruction or gangrene; N40.0 Benign prostatic hyperplasia without lower urinary tract symptoms; M19.90 Unspecified osteoarthritis, unspecified site; I48.91 Unspecified atrial fibrillation; G30.9 Alzheimer's disease, unspecified; F02.80 Dementia in other diseases classified elsewhere, unspecified severity, without behavioral disturbance, psychotic disturbance, mood disturbance, and anxiety; G89.29 Other chronic pain; F32.A Depression, unspecified; M54.9 Dorsalgia, unspecified; I95.1 Orthostatic hypotension; E66.9 Obesity, unspecified; D64.9 Anemia, unspecified; Z85.830 Personal history of malignant neoplasm of bone; Z85.118 Personal history of other malignant neoplasm of bronchus and lung; Z86.16 Personal history of COVID-19; Z98.890 Other specified postprocedural states; Z99.81 Dependence on supplemental oxygen; Z79.899 Other long term (current) drug therapy; Z68.28 Body mass index [BMI] 28.0-28.9, adult; Z79.01 Long term (current) use of anticoagulants
CPT/HCPCS: 36415; 70551; 80053; 83605; 83735; 84484; 85025; 86038; 86140; 93005; 96374; 96375; 96376; 99285; J2060; 71045; 71045-26; 71046; 71046-26; 71270; 71270-26; 80048; 81001; 87070; 87077; 87186; 87205; 93010; 94640; 94668; 94761; 97110-GP; 97116-GP; 97161-GP; 97530-GP; A9270-GY; J0696; J3490; Q9967